=== PATIENT | male | born 1960 | race Caucasian/White ===

== ENCOUNTER 2018-12-27 12:34 | Inpatient (IN) ==
[2018-12-27 13:51] LABS: BILIRUBIN URINE NEGATIVE (NEGATIVE); BLOOD URINE NEGATIVE (NEGATIVE); CLARITY CLEAR (CLEAR); COLOR YELLOW; GLUCOSE URINE NEGATIVE (NEGATIVE); KETONE URINE NEGATIVE (NEGATIVE); LEUKOCYTES URINE TRACE (NEGATIVE); NITRITE URINE NEGATIVE (NEGATIVE); PROTEIN URINE TRACE mg/dL (NEGATIVE); SP GRAVITY URINE 1.015; URINE BACTERIA NEGATIVE /HFP; URINE CAST NONE SEEN /LPF; URINE CRYSTAL NONE SEEN /HPF; URINE EPITHELIAL CELLS <10 /HPF (<10); URINE RBC <10 /HPF (<10); URINE SOURCE CLEAN CATCH; URINE YEAST NONE SEEN /HPF; UROBILINOGEN URINE NORMAL
[2018-12-27 14:02] LABS: UR AMPHETAMINES QUAL PRESUMPTIVE POSITIVE (NONE DETECT); UR BARBITUATES QUAL NONE DETECTED (NONE DETECT); UR BENZODIAZEPIN QUAL NONE DETECTED (NONE DETECT); UR COCAINE QUAL NONE DETECTED (NONE DETECT); UR METHADONE QUAL NONE DETECTED (NONE DETECT); UR METHAMPHETAMINE QUAL NONE DETECTED (NONE DETECT); UR OPIATES QUAL NONE DETECTED (NONE DETECT); UR OXYCODONE QUAL NONE DETECTED (NONE DETECT); UR PCP QUAL NONE DETECTED (NONE DETECT); UR PROPOXYPHENE QUAL NONE DETECTED (NONE DETECT)
[2018-12-27 14:03] LABS: UR CANNABINOIDS QUAL PRESUMPTIVE POSITIVE (NONE DETECT); UR TCA QUAL NONE DETECTED (NONE DETECT)
[2018-12-27 14:08] LABS: BASO# 0.06 X1000 (0.0-0.2); BASO% 0.7 % (0.0-0.8); EOS# 0.22 X1000 (0.0-0.7); EOS% 2.6 % (0.0-10.0); HEMATOCRIT 43.8 % (42.0-52.0); HEMOGLOBIN 14.6 g/dL (14.0-18.0); IMM GRAN# 0.01 X1000 (0.0-0.04); IMM GRAN% 0.1 % (0.0-0.5); LYMPH# 1.71 X1000 (1.2-3.4); LYMPH% 20.2 % (20.5-51.1); MCH 29.7 PG (27-31); MCHC 33.3 g/dL (33-37); MONO% 8.3 % (1.7-9.3); MPV 9.2 FL (7.4-10.4); NEUT# 5.76 X1000 (1.4-6.5); NEUT% 68.1 % (42.2-75.2); PLT 249 X1000 (130-400); RBC 4.92 XMIL (4.7-6.1); RDW 13.3 % (11.5-14.5); WBC 8.46 X1000 (4.8-10.8)
--- NOTE | 2018-12-27 14:21 | Diag Imaging Result Doc PS360 ---
EXAM: CHEST-PORTABLE 12/27/2018 HISTORY: CP TECHNIQUE: AP portable at 1426 COMMENT: There is no evidence of acute cardiac or pulmonary disease. Compared to 02/13/2016 the heart size appears smaller otherwise are has been no significant change. IMPRESSION: No acute disease. Electronically signed by Jason Borrego 12/27/2018 2:18 PM
[2018-12-27 14:30] LABS: AGAP 11; ALBUMIN 4.2 g/dL (3.5-5.0); ALKALINE PHOSPHATASE 61 U/L (32-122); BUN 16 mg/dL (8-22); CALCIUM 9.8 mg/dL (8.8-10.2); CHLORIDE 104 mmol/L (98-107); COSMO 276; CREATININE 0.7 mg/dL (0.7-1.2); ESTIMATED GFR > 60; GLUCOSE 123 mg/dL (70-104); GOT 24 U/L (10-34); GPT 13 U/L (10-44); POTASSIUM 4.6 mmol/L (3.5-5.1); SODIUM 137 mmol/L (136-145); TCO2 23 mmol/L (25-35); TOTAL PROTEIN 6.5 g/dL (6.3-8.3)
[2018-12-27 15:04] LABS: FREE T4 1.21 ng/dL (0.93-1.70); TSH 2.47 uIUmL (0.27-4.20)
--- NOTE | 2018-12-27 17:13 | PROVIDER DOCUMENTATION ---
This chart was entered by Betty Adkins Scribe, acting as scribe for Mehul Gee MD. [id number] Abuse/Overdose - General Chief Complaint: Req. Detox Stated Complaint: PSYCH EVAL Time Seen by Provider: 12/27/18 12:57 Source: patient Allergies/Adverse Reactions: Allergies Allergy/AdvReac Type Severity Reaction Status Date / Time Penicillins Allergy Unknown HIVES Verified 12/27/18 12:45 Home Medications: Home Medication List Medication Instructions Recorded Confirmed Last Taken Type NK [No Home Medications] 12/27/18 12/27/18 Unknown History - History of Present Illness-Drug/Alcohol Nature of Presenting Problem: Patient is a 58 year old male who presents with request for drug detox. States he has been using ice, meth and marijuana. Denies SI or hallucinations. This episode of drinking or use began:: unsure Severity: reports: mild Psychiatric Complaints: reports: denies symptoms Associated Symptoms: reports: denies symptoms Any injuries associated with this episode of intoxication?: No Similar Symptoms Previously?: Yes Recently seen or treated by another doctor?: Yes - Substance Abuse Substance Use: reports: marijuana, other (ice and meth) Review of Systems - Adult - REVIEW OF SYSTEMS - ADULT Constitutional: reports: no symptoms reported. denies: chills, fever, fatique Eyes: reports: no symptoms reported Ears, Nose, Mouth & Throat: reports: no symptoms reported Cardiovascular: reports: chest pain. denies: irregular heart rate, palpitations Respiratory: reports: no symptoms reported Gastrointestinal: reports: no symptoms reported. denies: diarrhea, nausea, vomiting Genitourinary: reports: no symptoms reported Musculoskeletal: reports: no symptoms reported Integumentary: reports: no symptoms reported Neurological: reports: no symptoms reported Psychiatric: reports: no symptoms reported. denies: anxiety, depression, suicidal thoughts Endocrine: reports: no symptoms reported Hematologic/Lymphatic: reports: no symptoms reported Allergic/Immunologic: reports: no symptoms reported All Other Systems: Reviewed and Negative Past History - Adult - PAST MEDICAL HISTORY-ADULT Review of Records: reports: Old Records Reviewed, Social history reviewed & non- contributory. Major Childhood Illnesses: reports: denies history Cardiovascular: reports: HTN Respiratory: reports: denies history Gastrointestinal: reports: denies history Obstetrical/Gynecological: reports: denies history Genitourinary: reports: denies history Musculoskeletal: reports: chronic pain Neurological: reports: denies history Psychiatric: reports: schizophrenia Endocrine/Immune: reports: Diabetes Other Conditions: reports: denies history - PRIOR SURGERIES/PROCEDURES Surgical/Procedure History: reports: tonsillectomy, hernia repair - IMMUNIZATION STATUS Childhood Immunizations: See Nurse Assessment Flu Vaccine: See Nurse Assessment - FAMILY HISTORY Family History: reviewed, not pertinent - SOCIAL HISTORY Smoking: cigarettes, less than 1 pack/day Provider spent 3-5 mins advising pt. on dangers of tobacco.: Discussed manners to quit use, and f/u contacts for add'l counseling. Substance Use: marijuana, other (ice and meth) Physical Exam-General - PHYSICAL EXAM-ADULT Initial Vital Signs Reviewed: Yes - CONSTITUTIONAL General Appearance: alert, no apparent distress. negative: lethargic - HEAD, EARS, NOSE, MOUTH & THROAT HENMT: normocephalic/atraumatic, moist mucous membranes. negative: angioedema - RESPIRATORY Respiratory: lungs clear, normal breath sounds, other (left anterior chest wall tenderness). negative: crackles, rhonchi - CARDIOVASCULAR Cardiovascular: normal peripheral pulses, regular rate, rhythm. negative: tachycardia - GASTROINTESTINAL (ABDOMEN) Abdominal Exam: normal bowel sounds, non tender, soft. negative: rigid - MUSCULOSKELETAL Extremity: normal gait, normal inspection. negative: deformity, erythema - SKIN Integumentary: normal color, normal turgor, warm/dry. negative: diaphoresis, jaundice, rash - NEUROLOGIC Neurologic: grossly normal. negative: aphasia, facial droop - PSYCHIATRIC Psych/Mental Status: normal mood/affect, oriented x 3. negative: anxious Progress - PLAN OF CARE/RESULTS Progress/Plan/Lab Results: Vital Signs - 8 hr 12/27/18 12:42 12/27/18 16:55 12/27/18 16:56 Temperature 98.3 F 97.2 F L Pulse Rate 93 H 72 72 Respiratory Rate 18 18 18 Blood Pressure 124/79 116/61 116/61 O2 Sat by Pulse Oximetry 96 95 96 Laboratory Results - last 24 hr 12/27/18 12/27/18 12/27/18 13:17 13:17 13:50 WBC RBC Hgb Hct MCV MCH MCHC RDW Std Deviation Plt Count MPV Immature Gran % (Auto) Neut % (Auto) Lymph % (Auto) [place] % (Auto) Eos % (Auto) Baso % (Auto) Immature Gran # (Auto) Neut # (Auto) Lymph # (Auto) [place] # (Auto) Eos # (Auto) Baso # (Auto) Sodium Potassium Chloride Carbon Dioxide Anion Gap BUN Creatinine Estimated GFR/1.73 m2 BUN/Creatinine Ratio Glucose Calculated Osmolality Calcium Total Bilirubin AST ALT Alkaline Phosphatase Creatine Kinase 62 Troponin T Total Protein Albumin Globulin Albumin/Globulin Ratio Vitamin B12 TSH Free T4 Urine Source CLEAN CATCH Urine Color YELLOW Urine Clarity CLEAR Urine pH 7.0 Ur Specific [place] 1.015 Urine Protein TRACE A Urine Ketones NEGATIVE Urine Blood NEGATIVE Urine Nitrite NEGATIVE Urine Bilirubin NEGATIVE Urine Urobilinogen NORMAL Urine Microscopic RBC <10 Urine WBC TRACE A Urine Microscopic WBC 10-20 A Ur Epithelial Cells <10 Urine Crystals NONE SEEN Urine Bacteria NEGATIVE Urine Casts NONE SEEN Urine Yeast NONE SEEN Urine Glucose NEGATIVE Urine Opiates Screen NONE DETECTED Ur Oxycodone Screen NONE DETECTED Urine Methadone Screen NONE DETECTED U Propoxyphene Qual NONE DETECTED Ur Barbituates Screen NONE DETECTED Ur Tricyclics Screen NONE DETECTED Ur Phencyclidine Scrn NONE DETECTED Ur Amphetamines Screen PRESUMPTIVE POSITIVE A U Methamphetamines Scrn NONE DETECTED U Benzodiazepines Scrn NONE DETECTED Urine Cocaine Screen NONE DETECTED U Cannabinoids Screen PRESUMPTIVE POSITIVE A Plasma/Serum Ethyl Alc 12/27/18 12/27/18 12/27/18 13:50 13:50 13:50 WBC 8.46 RBC 4.92 Hgb 14.6 Hct 43.8 MCV 89.0 MCH 29.7 MCHC 33.3 RDW Std Deviation 13.3 Plt Count 249 MPV 9.2 Immature Gran % (Auto) 0.1 Neut % (Auto) 68.1 Lymph % (Auto) 20.2 L [place] % (Auto) 8.3 Eos % (Auto) 2.6 Baso % (Auto) 0.7 Immature Gran # (Auto) 0.01 Neut # (Auto) 5.76 Lymph # (Auto) 1.71 [place] # (Auto) 0.70 H Eos # (Auto) 0.22 Baso # (Auto) 0.06 Sodium Potassium Chloride Carbon Dioxide Anion Gap BUN Creatinine Estimated GFR/1.73 m2 BUN/Creatinine Ratio Glucose Calculated Osmolality Calcium Total Bilirubin AST ALT Alkaline Phosphatase Creatine Kinase Troponin T < 0.010 Total Protein Albumin Globulin Albumin/Globulin Ratio Vitamin B12 TSH Free T4 Urine Source Urine Color Urine Clarity Urine pH Ur Specific [place] Urine Protein Urine Ketones Urine Blood Urine Nitrite Urine Bilirubin Urine Urobilinogen Urine Microscopic RBC Urine WBC Urine Microscopic WBC Ur Epithelial Cells Urine Crystals Urine Bacteria Urine Casts Urine Yeast Urine Glucose Urine Opiates Screen Ur Oxycodone Screen Urine Methadone Screen U Propoxyphene Qual Ur Barbituates Screen Ur Tricyclics Screen Ur Phencyclidine Scrn Ur Amphetamines Screen U Methamphetamines Scrn U Benzodiazepines Scrn Urine Cocaine Screen U Cannabinoids Screen Plasma/Serum Ethyl Alc 12/27/18 12/27/18 13:50 13:50 WBC RBC Hgb Hct MCV MCH MCHC RDW Std Deviation Plt Count MPV Immature Gran % (Auto) Neut % (Auto) Lymph % (Auto) [place] % (Auto) Eos % (Auto) Baso % (Auto) Immature Gran # (Auto) Neut # (Auto) Lymph # (Auto) [place] # (Auto) Eos # (Auto) Baso # (Auto) Sodium 137 Potassium 4.6 Chloride 104 Carbon Dioxide 23 L Anion Gap 11 BUN 16 Creatinine 0.7 Estimated GFR/1.73 m2 > 60 BUN/Creatinine Ratio 23 Glucose 123 H Calculated Osmolality 276 Calcium 9.8 Total Bilirubin 0.30 AST 24 ALT 13 Alkaline Phosphatase 61 Creatine Kinase Troponin T Total Protein 6.5 Albumin 4.2 Globulin 2.0 Albumin/Globulin Ratio 2.0 Vitamin B12 406 TSH 2.47 Free T4 1.21 Urine Source Urine Color Urine Clarity Urine pH Ur Specific [place] Urine Protein Urine Ketones Urine Blood Urine Nitrite Urine Bilirubin Urine Urobilinogen Urine Microscopic RBC Urine WBC Urine Microscopic WBC Ur Epithelial Cells Urine Crystals Urine Bacteria Urine Casts Urine Yeast Urine Glucose Urine Opiates Screen Ur Oxycodone Screen Urine Methadone Screen U Propoxyphene Qual Ur Barbituates Screen Ur Tricyclics Screen Ur Phencyclidine Scrn Ur Amphetamines Screen U Methamphetamines Scrn U Benzodiazepines Scrn Urine Cocaine Screen U Cannabinoids Screen Plasma/Serum Ethyl Alc Orders Category Date Time Status CHEST-PORTABLE [RAD] Stat Exams 12/27/18 13:24 Completed ALCOHOL BLOOD Stat Lab 12/27/18 13:50 Completed CBC WITH ELECTRONIC DIFF [HEME] Stat Lab 12/27/18 13:50 Completed CK PROFILE [SP CHEM] Stat Lab 12/27/18 13:50 Completed COMPREHENSIVE METABOLIC PANEL [CHEM] Stat Lab 12/27/18 13:50 Completed FREE T4 Stat Lab 12/27/18 13:50 Completed TROPONIN T Stat Lab 12/27/18 13:50 Completed TSH Stat Lab 12/27/18 13:[address] W/POSS RFLX CULT [URINALYSIS] Stat Lab 12/27/18 13:17 Completed URINE CULTURE [RM] Routine Lab 12/27/18 13:52 Ordered URINE DRUG SCREEN [address] Stat Lab 12/27/18 13:17 Completed VITAMIN B12 Stat Lab 12/27/18 13:50 Completed EKG [EKG] Stat Ther 12/27/18 13:24 Ordered Result Diagrams: 12/27/18 13:50 12/27/18 13:50 - XRAY 1 XRAY Study: Chest Impression: See EMR Report ( EXAM: CHEST-PORTABLE 12/27/2018 HISTORY: CP TECHNIQUE: AP portable at 1426 COMMENT: There is no evidence of acute cardiac or pulmonary disease. Compared to 02/13/2016 the heart size appears smaller otherwise are has been no significant change. IMPRESSION: No acute disease. Electronically signed by Jason Borrego 12/27/2018 2:18 PM 12/27/18 1418 Interpreting Physician: Jason Borrego MD Dictated Date/Time: 12/27/18 1418 cc: Mehul Gee MD; None,PCP) - CONSULTS/PCP/HOSPITALIST Notification #1 *Consult/PCP/Hospitalist*: Pt evaluated and accepted by [facility] Time Discussed: 16:30 Consult Disposition: other (transfer) Departure - Departure Date of Disposition Decision: 12/27/18 Time of Disposition Decision: 16:45 DIAGNOSIS: Substance abuse or dependence, Desire for detoxification, Chest wall pain Disposition: OTHER 70 Certified Medical Emergency: Emergent Condition: Stable Referrals and Follow-Ups: None,PCP [Primary Care Provider] - - Critical Care Note This patient required my direct & personal management of CC.: No Attestation - Physician/ DAGMAR Attestation Patient care was provided by Advanced Practice Provider:: No The physician spent face to face time with patient:: Yes Advanced Practice Provider documentation review:: Supervising physician onsite and consulted in the evaluation and care of this patient. The physician did have a face to face encounter with the patient. This chart was documented by the indicated scribe, (Betty Adkins Scribe) and accurately reflects the services I performed and decisions made by me, Mehul Gee MD, as attested by the provider's signature.
--- NOTE | 2018-12-27 17:41 | EKG Report ---
Test Performed on : 12/27/2018 4:53:49 PM Test Reason : CP Blood Pressure : / mmHG Vent. Rate : 069 BPM Atrial Rate : 069 BPM P-R Int : 144 ms QRS Dur : 088 ms QT Int : 390 ms P-R-T Axes : 049 053 048 degrees QTc Int : 417 ms Normal sinus rhythm. Normal ECG When compared with ECG of 01-FEB-2017 13:42, No significant change was found Unconfirmed Result
[2018-12-27] MEDS ORDERED: ZOFRAN IV PRN (17:56)
[2018-12-27] MEDS ORDERED: BENTYL PO PRN (17:56)
[2018-12-27] MEDS ORDERED: DESYREL PO PRN (17:56)
[2018-12-27] MEDS ORDERED: MAALOX PLUS LIQUID PO PRN (17:56)
[2018-12-27] MEDS ORDERED: PHENOBARBITAL IV PRN (17:56)
[2018-12-27] MEDS ORDERED: ZOFRAN ODT PO PRN (17:56)
[2018-12-27] MEDS ORDERED: SINEMET 25/100 PO PRN (17:56)
[2018-12-27] MEDS ORDERED: TYLENOL PO PRN (17:56)
[2018-12-27] MEDS ORDERED: DULCOLAX PR PRN (17:56)
[2018-12-27] MEDS ORDERED: ATARAX PO PRN (17:56)
[2018-12-27] MEDS ORDERED: D5W 1,000 ML IV PRN (17:56)
[2018-12-27] MEDS ORDERED: IMODIUM PO PRN (17:56)
[2018-12-27] MEDS ORDERED: NICODERM PATCH TD PRN (17:56)
[2018-12-27] MEDS ORDERED: MOTRIN PO PRN (17:56)
[2018-12-27] MEDS ORDERED: SENOKOT PO PRN (17:56)
[2018-12-27] MEDS ORDERED: TUBERSOL ID ONE (17:56)
[2018-12-27] MEDS ORDERED: LIBRIUM PO PRN (17:56)
[2018-12-27 18:52] LABS: HEMOGLOBIN 14.7 g/dL (14.0-18.0); MCH 29.8 PG (27-31); MCHC 33.4 g/dL (33-37); MCV 89.1 FL (81-99); MPV 9.3 FL (7.4-10.4); RBC 4.94 XMIL (4.7-6.1); RDW 13.4 % (11.5-14.5); WBC 8.97 X1000 (4.8-10.8)
[2018-12-27 19:01] LABS: INR 0.98; PROTIME 13.5 Seconds (11.0-16.0)
[2018-12-27 19:12] LABS: AMYLASE 60 U/L (20-200); LIPASE 112 U/L (13-60)
[2018-12-27 19:15] LABS: AGAP 11; ALBUMIN 4.3 g/dL (3.5-5.0); ALKALINE PHOSPHATASE 61 U/L (32-122); BUN 16 mg/dL (8-22); CALCIUM 9.9 mg/dL (8.8-10.2); CHLORIDE 101 mmol/L (98-107); COSMO 282; CREATININE 0.8 mg/dL (0.7-1.2); ESTIMATED GFR > 60; GLUCOSE 153 mg/dL (70-104); GOT 22 U/L (10-34); GPT 13 U/L (10-44); POTASSIUM 3.8 mmol/L (3.5-5.1); SODIUM 139 mmol/L (136-145); TCO2 27 mmol/L (25-35)
[2018-12-27] MEDS ORDERED: PNEUMOVAX 23 IM ONE (19:15)
[2018-12-27 19:35] LABS: URINE SOURCE VOIDED
[2018-12-27 19:47] LABS: BILIRUBIN URINE NEGATIVE (NEGATIVE); BLOOD URINE NEGATIVE (NEGATIVE); GLUCOSE URINE NEGATIVE (NEGATIVE); KETONE URINE NEGATIVE (NEGATIVE); LEUKOCYTES URINE NEGATIVE (NEGATIVE); NITRITE URINE NEGATIVE (NEGATIVE); PROTEIN URINE NEGATIVE (NEGATIVE); SP GRAVITY URINE 1.015; UROBILINOGEN URINE NORMAL
[2018-12-27 19:48] LABS: CLARITY CLEAR (CLEAR); COLOR YELLOW
[2018-12-27 19:58] LABS: UR AMPHETAMINES QUAL PRESUMPTIVE POSITIVE (NONE DETECT); UR BARBITUATES QUAL NONE DETECTED (NONE DETECT); UR BENZODIAZEPIN QUAL NONE DETECTED (NONE DETECT); UR CANNABINOIDS QUAL PRESUMPTIVE POSITIVE (NONE DETECT); UR COCAINE QUAL NONE DETECTED (NONE DETECT); UR METHADONE QUAL NONE DETECTED (NONE DETECT); UR METHAMPHETAMINE QUAL NONE DETECTED (NONE DETECT); UR OPIATES QUAL NONE DETECTED (NONE DETECT); UR OXYCODONE QUAL NONE DETECTED (NONE DETECT); UR PCP QUAL NONE DETECTED (NONE DETECT); UR PROPOXYPHENE QUAL NONE DETECTED (NONE DETECT); UR TCA QUAL NONE DETECTED (NONE DETECT)
[2018-12-27] MEDS ORDERED: LIBRIUM PO SCH (20:00)
[2018-12-28] MEDS: PROTONIX PO SCH ×2 (05:53→06:08)
[2018-12-28] MEDS: LIBRIUM PO SCH ×3 (05:53→17:58)
[2018-12-28] MEDS: VITAMIN B-1 PO SCH (09:20)
[2018-12-28] MEDS: ROBAXIN PO PRN (09:20)
[2018-12-28] MEDS: FOLIC ACID PO SCH (09:20)
[2018-12-28] MEDS: THERA M PLUS PO SCH (09:20)
--- NOTE | 2018-12-28 22:11 | PROGRESS NOTE ---
DATE: 12/28/2018 SUBJECTIVE: The patient notes overall, he is feeling a little bit better. Denies any fevers. OBJECTIVE: Temperature 98, pulse 77, BP 115/62.General: Patient is awake, alert, currently in no distress. HEENT: Normocephalic. Neck: Supple. Cardiovascular: Regular rate. Chest: Clear. Abdomen: Soft. Extremities: Moves all extremities. ASSESSMENT: 1. Nausea and vomiting. 2. Abdominal pain. 3. Myalgias. 4. Paresthesias. 5. Paroxysmal sweating. 6. Opiate abuse withdrawal and stabilization. PLAN: We will continue patient in the hospital. Continue to follow. Current orders as prescribed. cc: Enrique Jarvis MD
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
[2018-12-29] MEDS: LIBRIUM PO SCH ×3 (00:08→15:40)
[2018-12-29] MEDS: ROBAXIN PO PRN (00:16)
[2018-12-29] MEDS: PROTONIX PO SCH (06:43)
[2018-12-29] MEDS: FOLIC ACID PO SCH (07:59)
[2018-12-29] MEDS: VITAMIN B-1 PO SCH (07:59)
[2018-12-29] MEDS: THERA M PLUS PO SCH (07:59)
[2018-12-29] MEDS: ROCEPHIN 1 GM in NS 50 ML IV SCH (07:59)
[2018-12-29] MEDS: SEROQUEL PO PRN (21:58)
[2018-12-30] MEDS: LIBRIUM PO SCH ×4 (00:10→21:34)
--- NOTE | 2018-12-30 00:52 | PROGRESS NOTE ---
DATE: 12/29/2018 SUBJECTIVE: Patient notes overall he is feeling better. Denies any fevers, chills. Denies cough, congestion. PHYSICAL EXAMINATION: Vital Signs: Reviewed. Temperature 97.7 degrees, pulse 77, respiratory rate 18, BP 115/64. General: Patient is awake, currently in no distress. HEENT: Normocephalic. Neck: Supple. Cardiovascular: Regular rate. Chest: Clear. Abdomen: Soft. Extremities: Moves all extremities. ASSESSMENT: 1. Gram-negative vimal urinary tract infection. 2. Nausea and vomiting. 3. Tremors. 4. Myalgias. 5. Paresthesias. 6. Polysubstance use and abuse. PLAN: Continue Librium taper. We will add antibiotics. We will follow. Await for urine culture. Hopefully home over the next 1 or 2 days. cc: Enrique Jarvis MD
[2018-12-30] MEDS: PROTONIX PO SCH (06:02)
[2018-12-30] MEDS: ROCEPHIN 1 GM in NS 50 ML IV SCH (09:58)
[2018-12-30] MEDS: FOLIC ACID PO SCH (09:59)
[2018-12-30] MEDS: THERA M PLUS PO SCH (09:59)
[2018-12-30] MEDS: LEVAQUIN PO SCH (09:59)
[2018-12-30] MEDS: VITAMIN B-1 PO SCH (09:59)
--- NOTE | 2018-12-30 18:51 | PROGRESS NOTE ---
DATE: 12/30/2018 SUBJECTIVE: Patient notes that he is finally starting to feel better. Denies fever, says his muscle aches have improved. PHYSICAL EXAMINATION: Vital Signs: Temperature 98 degrees, pulse 79, respiratory rate 18, blood pressure 101/58. General: Patient is awake, currently in no distress. HEENT: Normocephalic. Cardiovascular: Regular rate. Respiratory: Chest clear, nonlabored. Abdomen: Soft. [*] Neurologic: No focal changes. Skin: No rashes. ASSESSMENT: 1. Nausea and vomiting, abdominal pain. 2. Myalgias. 3. Paresthesias. 4. Paroxysmal sweating. 5. Opiate abuse withdrawal and stabilization. 6. Urinary tract infection with Klebsiella. PLAN: We will place patient on Levaquin for his Klebsiella urinary tract infection. We will continue Librium taper, counts. Further orders as needed. cc: Enrique Jarvis MD
[2018-12-30] MEDS: SEROQUEL PO PRN (21:34)
[2018-12-31] MEDS: PROTONIX PO SCH (06:09)
[2018-12-31] MEDS: LEVAQUIN PO SCH (09:51)
[2018-12-31] MEDS: FOLIC ACID PO SCH (09:51)
[2018-12-31] MEDS: VITAMIN B-1 PO SCH (09:51)
[2018-12-31] MEDS: THERA M PLUS PO SCH (09:51)
[2018-12-31] MEDS: ROBAXIN PO PRN (09:51)
--- NOTE | 2018-12-31 17:27 | PROGRESS NOTE ---
DATE: 12/31/2018 SUBJECTIVE: Patient notes overall he is feeling better. Still fatigued and tired, still having some muscle aches. Denies any fevers or chills. PHYSICAL EXAMINATION: Vital Signs: Reviewed. General: He is awake, alert. He is in no respiratory distress. HEENT: Normocephalic. Neck: Supple. Cardiovascular: Regular rate. Chest: Clear. Abdomen: Soft. Extremities: Moves all extremities. Neurologic: No focal changes. Skin: Warm and dry. No rashes. ASSESSMENT: 1. Nausea vomiting. 2. Abdominal pain. 3. Myalgias. 4. Paresthesias. 5. Paroxysmal sweating. 6. Opiate abuse withdrawal and stabilization. 7. Urinary tract infection. PLAN: We will continue patient in the hospital, continue antibiotics .we will switch to Levaquin, as he has a Klebsiella pneumoniae urinary tract infection. We will continue to wean Librium. Hopefully we can find a further inpatient treatment facility prior to discharge. cc: Enrique Jarvis MD
[2018-12-31 17:48] VITALS: BP 147/87
[2018-12-31] MEDS ORDERED: LIBRIUM PO SCH (21:00)
--- NOTE | 2019-01-01 17:48 | DISCHARGE SUMMARY ---
ADMISSION DATE: 12/27/2018 DISCHARGE DATE: 12/31/2018 DISCHARGE DIAGNOSES: 1. Nausea/vomiting. 2. Abdominal pain. 3. Myalgias. 4. Paresthesias. 5. Paroxysmal sweating. 6. Polysubstance abuse and withdrawal. CONSULTATION: None. PROCEDURES: None. BRIEF HOSPITAL COURSE: The patient is a 58-year-old male, who presented to the hospital, treated in the usual fashion, placed on Librium taper. Counseling was performed each day. Patient had planned on staying in the hospital and transferring to further inpatient rehabilitation. On the date of discharge, he noted that he was feeling better. He was having no real withdrawal symptoms. DISPOSITION: At some point later in the evening on the date of discharge, Mr. Miguel decided he was no longer going to stay in the hospital and demanded that he be discharged. As he did not require any medications on discharge, he was discharged home. DISCHARGE INSTRUCTIONS: I did instruct him to call back on Wednesday to try to continue to arrange further inpatient as well as outpatient treatment, as he left prior to this being able to be set up. cc: Enrique Jarvis MD
== END 2018-12-31 20:03 | disposition home or self-care (01) | DRG 897 ==
LOC: P.ED 12:34 → P.MEDSURG 17:17
PROVIDERS: ADMIT Family Medicine; ATTEND Family Medicine